=== PATIENT | female | born 1960 | race African-American/Black ===

== ENCOUNTER 2017-01-11 16:44 | Observation (INO) | payer OTHER ==
[~2017-01-11] VITALS: Ht 162.6 cm; Wt 120.3 kg
[~2017-01-11 16:44] MED LIST: CYCL5TAB PO; HYDR-2758 PO; LIRA0.6P SQ; METF-620 PO; METO50TA2 PO; OMEP40CA5 PO; PRAV40TA2 PO; TRAM50TA PO
[2017-01-11] MEDS ORDERED: IV NORMAL SALINE 1000ML BAG 1,000 ML IV SCH (17:25)
[2017-01-11] MEDS ORDERED: ONDANSETRON PF 4 MG/2 ML VIAL. IV ONE ×3 (17:30→21:00)
[2017-01-11 17:33] LABS: BASO # 0.1 x10^3/uL (0.0-0.2); BASO % 1 % (0-3); EOS % 0 % (0-3); HEMATOCRIT 41.2 % (36.0-47.0); HEMOGLOBIN 13.5 g/dL (12.0-15.5); LYMPH % 15 % (24-48); MEAN CORPUSCULAR HEMOGLOBIN 26 pg (25-35); MEAN CORPUSCULAR HGB CONC 33 g/dL (31-37); MEAN CORPUSCULAR VOLUME 80 fL (79-100); MONO % 2 % (0-9); NEUT % 82 % (31-73); PLATELET COUNT 314 x10^3/uL (140-400); RED BLOOD COUNT 5.15 x10^6/uL (3.50-5.40); WHITE BLOOD COUNT 6.5 x10^3/uL (4.0-11.0)
[2017-01-11] MEDS: fentaNYL PF VIAL 100 MCG/2 ML VIAL IV PRN ×3 (17:37→22:04)
[2017-01-11 17:45] LABS: CALCIUM 9.7 mg/dL (8.5-10.1); CREATININE 1.2 mg/dL (0.6-1.0); GFR 55.8; POTASSIUM 3.8 mmol/L (3.5-5.1)
[2017-01-11 17:51] LABS: TOTAL BILIRUBIN 0.4 mg/dL (0.2-1.0); TOTAL PROTEIN 8.6 g/dL (6.4-8.2)
[2017-01-11 18:10] LABS: ALBUMIN 4.1 g/dL (3.4-5.0); ALBUMIN/GLOBULIN RATIO 0.9 (1.0-1.7)
[2017-01-11] MEDS ORDERED: CONTRAST GIVEN MC PRN (18:15)
[2017-01-11] MEDS ORDERED: IOHEXOL 300 MG/ML 75 ML VIAL IV ONE (18:15)
--- NOTE | 2017-01-11 18:17 | ED.ADGEN ---
Past Medical History Past Medical History: Diabetes-Type II, GERD, Hypertension, VT Past Surgical History: Angioplasty, Hysterectomy, Other Additional Past Surgical Histo: knee surgery Alcohol Use: None Drug Use: None Adult General Chief Complaint Chief Complaint: ABDOMINAL PAIN HPI HPI Patient is a 56 year old woman, history of morbid obesity, type 2 diabetes mellitus, hypertension, CAD status post VT, who presents emergency Department with a complaint of several days of decreased appetite and abdominal pain, that has been growing progressively worse. Patient states that today she developed nausea and vomiting, with severe abdominal pain, located in her upper abdomen. She denies similar symptoms previously. States the pain does not radiate, states her last bowel movement was this morning and was normal, denies any diarrhea, states that she had food and fluid in her emesis. No blood. Patient has a history of a cholecystectomy, and hysterectomy, denies any other surgeries , states the pain is sharp and stabbing in nature, is constant. Denies any urinary complaints. Denies any travel, any fevers or chills, any chest pain or shortness breath, any similar symptoms previously. Patient is moaning on the bed during my examination. She states that she's been taking all medications as directed until today, where she is unable to take medications old a due to her pain and vomiting. She is complaining of nausea at this time, and 10 out of 10 pain. Review of Systems Review of Systems Constitutional: Denies fever or chills. [] Eyes: Denies change in visual acuity. [] HENT: Denies nasal congestion or sore throat. [] Respiratory: Denies cough or shortness of breath. [] Cardiovascular: Denies chest pain or edema. [] GI: Sharp and stabbing abdominal pain in the upper abdomen, associated with nausea, vomiting, no bloody stools or diarrhea.[] : Denies dysuria. [] Musculoskeletal: Denies back pain or joint pain. [] Integument: Denies rash. [] Neurologic: Denies headache, focal weakness or sensory changes. [] Endocrine: Denies polyuria or polydipsia. [] Lymphatic: Denies swollen glands. [] Psychiatric: Denies depression or anxiety. [] Current Medications Current Medications Current Medications Medications (Trade) Dose Ordered Sig/Sean Start Time Stop Time Status Last Admin Dose Admin Acetaminophen/ Hydrocodone Bitart (Lortab 5/325) 1 tab PRN Q4HRS PRN 01/11/17 21:00 01/11/17 22:56 1 TAB Dextrose (Dextrose 50%-Water Syringe) 12.5 gm PRN Q15MIN PRN 01/11/17 21:00 Famotidine (Pepcid) 20 mg QHS 01/11/17 21:00 Fentanyl Citrate (Fentanyl 2ml Vial) 50 mcg PRN Q2HR PRN 01/11/17 21:00 01/12/17 20:59 Info (Do NOT chart on this entry -- for MONITORING) 1 each PRN DAILY PRN 01/11/17 18:15 01/13/17 18:14 Iohexol (Omnipaque 300 Mg/ml) 60 ml 1X ONCE 01/11/17 18:15 01/11/17 18:16 DC 01/11/17 18:12 60 ML Labetalol HCl (Normodyne) 10 mg PRN Q2HR PRN 01/11/17 21:00 01/11/17 22:05 10 MG Metoprolol Tartrate (Lopressor) 50 mg BID 01/11/17 21:15 Ondansetron HCl (Zofran Odt) 4 mg PRN Q6HRS PRN 01/11/17 21:00 Ondansetron HCl (Zofran) 4 mg 1X ONCE 01/11/17 21:00 01/11/17 21:01 DC Sodium Chloride 1,000 ml @ 100 mls/hr Q10H 01/11/17 21:00 Tramadol HCl (Ultram) 50 mg PRN Q4HRS PRN 01/11/17 21:00 Allergies Allergies Allergies Coded Allergies Type Severity Reaction Last Updated Verified No Known Drug Allergies 10/06/13 No Physical Exam Physical Exam Constitutional: Well developed, well nourished, patient moaning, complaining of nausea, non-toxic appearance. [] HENT: Normocephalic, atraumatic, bilateral external ears normal, oropharynx moist, no oral exudates, nose normal. [] Eyes: PERRLA, EOMI, conjunctiva normal, no discharge. [] Neck: Normal range of motion, no tenderness, supple, no stridor. [] Cardiovascular:Heart rate regular rhythm, no murmur , S1, S2, rubs or gallops.[] Lungs & Thorax: Bilateral breath sounds clear to auscultation, no wheezing, rhonchi, rales. No chest or crepitus or tenderness. [] Abdomen: Bowel sounds present, patient obese, soft, tenderness to palpation in the upper and periumbilical region of the abdomen, patient with well-healed surgical incision across the right upper abdomen, right lower quadrant, and vertical incision in the suprapubic region, all are well healed, no rebound or rigidity, no masses, no pulsatile masses. [] Skin: Warm, dry, no erythema, no rash. [] Back: No tenderness, no CVA tenderness. [] Extremities: No tenderness, no cyanosis, no clubbing, ROM intact, no edema. [] Neurologic: Alert and oriented X 3, normal motor function, normal sensory function, no focal deficits noted. [] Psychologic: Affect normal, judgement normal, mood normal. [] Current Patient Data Vital Signs Vital Signs Date Time Temp Pulse Resp B/P (MAP) Pulse Ox O2 Delivery O2 Flow Rate FiO2 01/11/17 21:11 98 20 197/74 (115) 98 Room Air 01/11/17 16:55 98.2 98.2 Lab Values Laboratory Tests Test 01/11/17 17:02 01/11/17 18:52 White Blood Count 6.5 x10^3/uL (4.0-11.0) Red Blood Count 5.15 x10^6/uL (3.50-5.40) Hemoglobin 13.5 g/dL (12.0-15.5) Hematocrit 41.2 % (36.0-47.0) Mean Corpuscular Volume 80 fL (79-100) Mean Corpuscular Hemoglobin 26 pg (25-35) Mean Corpuscular Hemoglobin Concent 33 g/dL (31-37) Red Cell Distribution Width 14.0 % (11.5-14.5) Platelet Count 314 x10^3/uL (140-400) Neutrophils (%) (Auto) 82 % (31-73) H Lymphocytes (%) (Auto) 15 % (24-48) L Monocytes (%) (Auto) 2 % (0-9) Eosinophils (%) (Auto) 0 % (0-3) Basophils (%) (Auto) 1 % (0-3) Neutrophils # (Auto) 5.3 x10^3uL (1.8-7.7) Lymphocytes # (Auto) 1.0 x10^3/uL (1.0-4.8) Monocytes # (Auto) 0.1 x10^3/uL (0.0-1.1) Eosinophils # (Auto) 0.0 x10^3/uL (0.0-0.7) Basophils # (Auto) 0.1 x10^3/uL (0.0-0.2) Sodium Level 141 mmol/L (136-145) Potassium Level 3.8 mmol/L (3.5-5.1) Chloride Level 101 mmol/L (98-107) Carbon Dioxide Level 26 mmol/L (21-32) Anion Gap 14 (6-14) Blood Urea Nitrogen 22 mg/dL (7-20) H Creatinine 1.2 mg/dL (0.6-1.0) H Estimated GFR (Cockcroft-Gault) 55.8 BUN/Creatinine Ratio 18 (6-20) Glucose Level 186 mg/dL (70-99) H Lactic Acid Level 3.0 mmol/L (0.4-2.0) H Calcium Level 9.7 mg/dL (8.5-10.1) Total Bilirubin 0.4 mg/dL (0.2-1.0) Aspartate Amino Transferase (AST) 21 U/L (15-37) Alanine Aminotransferase (ALT) 26 U/L (14-59) Alkaline Phosphatase 104 U/L (46-116) Troponin I Quantitative < 0.017 ng/mL (0.000-0.055) Total Protein 8.6 g/dL (6.4-8.2) H Albumin 4.1 g/dL (3.4-5.0) Albumin/Globulin Ratio 0.9 (1.0-1.7) L Lipase 116 U/L (73-393) Urine Collection Type Unknown Urine Color Yellow Urine Clarity Clear Urine pH 7.0 Urine Specific [place] >=1.030 Urine Protein Negative mg/dL (NEG-TRACE) Urine Glucose (UA) 100 mg/dL (NEG) Urine Ketones (Stick) 40 mg/dL (NEG) Urine Blood Negative (NEG) Urine Nitrite Negative (NEG) Urine Bilirubin Negative (NEG) Urine Urobilinogen Dipstick 0.2 mg/dL (0.2 mg/dL) Urine Leukocyte Esterase Negative (NEG) Urine RBC 0 /HPF (0-2) Urine WBC 0 /HPF (0-4) Urine Squamous Epithelial Cells Mod /LPF Urine Bacteria 0 /HPF (0-FEW) Urine Hyaline Casts Occasional /HPF Urine Opiates Screen Pos (NEG) Urine Methadone Screen Neg (NEG) Urine Barbiturates Neg (NEG) Urine Phencyclidine Screen Neg (NEG) Urine Amphetamine/Methamphetamine Neg (NEG) Urine Benzodiazepines Screen Neg (NEG) Urine Cocaine Screen Neg (NEG) Urine Cannabinoids Screen Pos (NEG) Urine Ethyl Alcohol Neg (NEG) Laboratory Tests 01/11/17 17:02 Laboratory Tests 01/11/17 17:02 EKG EKG EC: Sinus rhythm, heart rate 94 beats/minute, QTC of 445, NM 158, QRS of 84, patient with mild baseline artifact noted, escape complexes noted, abnormal ECG, does not meet STEMI criteria. As interpreted by me. Radiology/Procedures Radiology/Procedures [][facility] [address] [place] [address] IMAGING REPORT Signed PATIENT: RAKESH ZIMMERMAN ACCOUNT: [id number] : 1960 LOCATION: ER AGE: 56 SEX: F EXAM STATUS: REG ER ORD. PHYSICIAN: DE HOOD DO REASON: abd pain/n/v PROCEDURE: CT ABD PELV W/ IV CONTRST ONLY Indication: Abdominal pain, nausea and vomiting Technique: Axial images and coronal and sagittal reformatted images are provided. 75 mL of intravenous Omnipaque 300 was administered without complication. Comparison is from February 04, 2006. One or more of the following individualized dose reduction techniques were utilized for this examination: 1. Automated exposure control 2. Adjustment of the mA and/or kV according to patient size 3. Use of iterative reconstruction technique Findings: There is minimal atelectasis in the lung bases. There is no pleural effusion. The heart is not enlarged. There is mild fatty infiltration of the liver. Gallbladder is absent. Spleen is not enlarged. Pancreas and adrenals are unremarkable. Kidneys are symmetrically perfused. Aorta is normal caliber. There may be a small hiatal hernia. Lack of oral contrast limits evaluation of bowel. There is no small bowel obstruction or mural thickening. There are a few diverticula in the colon. There is no definite adjacent inflammatory stranding or mural thickening to suggest a diverticulitis. There is no evidence of an acute appendicitis, appendix not definitely visualized. There is a fat-containing periumbilical hernia on the left without incarceration, measures 5 x 2 cm. There is a second hernia from the lower abdomen, defect in the midline with hernia sac to the left of midline containing small bowel loops without evidence of obstruction or incarceration. This hernia sac measures 12 x 5 cm with defect in the abdominal wall 7 cm. Bladder is unremarkable. Uterus is presumed surgically absent. There is no adnexal mass. There are clips in the pelvis. There are degenerative changes in the spine. Portions of this patient's subcutaneous tissues cannot be included in the [id number], the left flank in particular is not well evaluated. This results in streak artifact limiting evaluation of the descending colon, especially in terms of adjacent inflammatory change. IMPRESSION: 1. Diverticulosis without findings of diverticulitis. 2. 2 abdominal hernias, one contains small bowel but is without evidence of obstruction or incarceration. 3. Suspected small hiatal hernia. Electronically signed by: Derrick Hammond MD (01/11/2017 6:49 PM) [facility] DICTATED and SIGNED BY: DERRICK AHMMOND MD DATE: 01/11/171841 CC: DE HOOD DO; DIAZ GRIGSBY Jr, MD ~ Course & Med Decision Making Course & Med Decision Making Pertinent Labs and Imaging studies reviewed. (See chart for details) Patient with persistent pain and nausea with vomiting despite interventions in the ED, including multiple doses of analgesia and antiemetics. CT does not reveal any evidence of acutely concerning findings, however based on patient's persistent symptoms, with an elevated lactic at 3.0, will admit for hydration, symptom management, additional evaluation. Did discuss with patient that his symptoms are likely consistent with a gastroenteritis, patient is agreeable for admission to the hospital. Findings as above discussed with Dr. Peralta of internal medicine, patient evaluated in the ED, accepted to her service as an observation admission, with consultation for GI placed, bridge orders per discussion. Dragon Disclaimer Dragon Disclaimer This electronic medical record was generated, in whole or in part, using a voice recognition dictation system. Departure Impression: Primary Impression: Abdominal pain Disposition: ADMITTED INPATIENT Admitting Physician: Jahaira Peralta Condition: STABLE DE HOOD DO Jan 11, 2017 18:17
--- NOTE | 2017-01-11 18:53 | RAD ---
Indication: Abdominal pain, nausea and vomiting Technique: Axial images and coronal and sagittal reformatted images are provided. 75 mL of intravenous Omnipaque 300 was administered without complication. Comparison is from February 04, 2006. One or more of the following individualized dose reduction techniques were utilized for this examination: 1. Automated exposure control 2. Adjustment of the mA and/or kV according to patient size 3. Use of iterative reconstruction technique Findings: There is minimal atelectasis in the lung bases. There is no pleural effusion. The heart is not enlarged. There is mild fatty infiltration of the liver. Gallbladder is absent. Spleen is not enlarged. Pancreas and adrenals are unremarkable. Kidneys are symmetrically perfused. Aorta is normal caliber. There may be a small hiatal hernia. Lack of oral contrast limits evaluation of bowel. There is no small bowel obstruction or mural thickening. There are a few diverticula in the colon. There is no definite adjacent inflammatory stranding or mural thickening to suggest a diverticulitis. There is no evidence of an acute appendicitis, appendix not definitely visualized. There is a fat-containing periumbilical hernia on the left without incarceration, measures 5 x 2 cm. There is a second hernia from the lower abdomen, defect in the midline with hernia sac to the left of midline containing small bowel loops without evidence of obstruction or incarceration. This hernia sac measures 12 x 5 cm with defect in the abdominal wall 7 cm. Bladder is unremarkable. Uterus is presumed surgically absent. There is no adnexal mass. There are clips in the pelvis. There are degenerative changes in the spine. Portions of this patient's subcutaneous tissues cannot be included in the [id number], the left flank in particular is not well evaluated. This results in streak artifact limiting evaluation of the descending colon, especially in terms of adjacent inflammatory change. IMPRESSION: 1. Diverticulosis without findings of diverticulitis. 2. 2 abdominal hernias, one contains small bowel but is without evidence of obstruction or incarceration. 3. Suspected small hiatal hernia. Electronically signed by: Derrick Hammond MD (01/11/2017 6:49 PM) [facility]
[2017-01-11 19:01] LABS: BILIRUBIN,URINE NEGATIVE (NEG); GLUCOSE,URINE 100 mg/dL (NEG); NITRITE,URINE NEGATIVE (NEG); PROTEIN,URINE NEGATIVE (NEG-TRACE); UROBILINOGEN,URINE 0.2 mg/dL (0.2 mg/dL)
[2017-01-11 19:07] LABS: BARBITURATES NEG (NEG); BENZODIAZEPINES NEG (NEG); CANNABINOIDS POS (NEG); COCAINE NEG (NEG); METHADONE NEG (NEG); OPIATES POS (NEG); PHENCYCLIDINE NEG (NEG)
[2017-01-11 19:09] LABS: BACTERIA,URINE 0 /HPF (0-FEW); RBC,URINE 0 /HPF (0-2); SQUAMOUS EPITHELIAL CELL,UR MOD /LPF; WBC,URINE 0 /HPF (0-4)
[2017-01-11] MEDS ORDERED: IV NORMAL SALINE 1000ML BAG 1,000 ML IV ONE (20:15)
[2017-01-11] MEDS ORDERED: ONDANSETRON ODT 4 MG TAB.RAPDIS. PO PRN (21:00)
[2017-01-11] MEDS ORDERED: LABETALOL 20 MG/4 ML DISP.SYRIN. IVP PRN (21:00)
[2017-01-11] MEDS ORDERED: HYDROcodone/APAP 5/325MG 1 TAB TABLET PO PRN (21:00)
[2017-01-11] MEDS ORDERED: DEXTROSE 50% 25 GM / 50ML DISP.SYRIN. IV PRN (21:00)
[2017-01-11] MEDS ORDERED: traMADol 50 MG TABLET PO PRN (21:00)
[2017-01-11] MEDS: IV NORMAL SALINE 1000ML BAG 1,000 ML IV SCH ×2 (21:00→22:00)
[2017-01-11] MEDS ORDERED: FAMOTIDINE 20 MG/2 ML VIAL IVP SCH (21:00)
[2017-01-11] MEDS ORDERED: fentaNYL PF VIAL 100 MCG/2 ML VIAL IV PRN (21:00)
--- NOTE | 2017-01-11 21:00 | PDOC1 ---
History and Physical Date of Admission Date of Admission DATE: 01/11/17 TIME: 20:53 Identification/Chief Complaint Chief Complaint abd pain Problems: Source Source: Caregiver, Chart review, Patient History of Present Illness History of Present Illness Pleasant 56 y.o AA female 1 week onset intermittent abd pain, most tender on Right side, mid to upper areas. CT abd fails to show any acute pathology, all incidentals only i,e ventral hernia none obstructing, diverticulosis, NO fevers , no diarrhea but did have 100 cc greenish emesis at ER during my visit, Better with IV fentanyl got 2 doses and is slightly sleepy, at bedside denies recent sick contacts or travels or any suspicious foods. Labs unimpressive. Admit as pain persist and to have GS see her,. HAs had prior cholecystectomy, APpendix still intact and lacks inflammatory findings Past Medical History Cardiovascular: HTN Endocrine: Diabetes Past Surgical History Past Surgical History: Cholecystectomy, No pertinent history Family History Family History: High Cholestrol, Hypertension Social History Smoke: No ALCOHOL: none Drugs: None Current Medications Current Medications Current Medications Fentanyl Citrate (Fentanyl 2ml Vial) 50 mcg PRN Q15MIN PRN IV PAIN GREATER THAN 3/10 Last administered on 01/11/17 19:19; Start 01/11/17 at 17:30; Stop at 17:29 Sodium Chloride 1,000 ml @ 1,000 mls/hr Q1H IV Last administered on 01/11/17 17:36; Start 01/11/17 at 17:25; Stop 01/11/17 at 18:24; Status DC Ondansetron HCl (Zofran) 4 mg 1X ONCE IV Last administered on 01/11/17 17:36 ; Start 01/11/17 at 17:30; Stop 01/11/17 at 17:31; Status DC Iohexol (Omnipaque 300 Mg/ml) 60 ml 1X ONCE IV Last administered on 01/11/17 18:12; Start 01/11/17 at 18:15; Stop 01/11/17 at 18:16; Status DC Info (Do NOT chart on this entry -- for MONITORING) 1 each PRN DAILY PRN MC SEE COMMENTS; Start 01/11/17 at 18:15; Stop 01/13/17 at 18:14 Ondansetron HCl (Zofran) 4 mg 1X ONCE IV Last administered on 01/11/17 20:20 ; Start 01/11/17 at 20:15; Stop 01/11/17 at 20:19; Status DC Sodium Chloride 1,000 ml @ 125 mls/hr 1X ONCE IV Last administered on 20:22; Start 01/11/17 at 20:15; Stop 01/12/17 at 04:14 Active Scripts Active Reported Victoza 2-Jewel (Liraglutide) 0.6 Mg/0.1 Ml Pen.injctr 0.6 Mg SQ DAILY Omeprazole 40 Mg Capsule.dr 40 Mg PO DAILY Cyclobenzaprine Hcl 5 Mg Tablet 5 Mg PO BID Metoprolol Tartrate 50 Mg Tablet 50 Mg PO BID Tramadol Hcl 50 Mg Tablet 50 Mg PO Q4H PRN Hydrocodone-Apap 5-325 (Hydrocodone Bit/Acetaminophen) 1 Each Tablet 1 Tab PO PRN Q4HRS PRN Pravastatin Sodium 40 Mg Tablet 40 Mg PO DAILY Metformin Hcl 1,000 Mg Tablet 1,000 Mg PO BID Allergies Allergies: Coded Allergies: No Known Drug Allergies (Unverified , 10/06/13) ROS Review of System limited sleepy, but is body rolling machine tender on palpation Physical Exam General: Oriented X3, Cooperative, No acute distress HEENT: PERRLA Lungs: Clear to auscultation, Normal air movement Cardiovascular: S1 Breasts: Normal, Rt breast nml w/o mass, Lt breast nml w/o mass, Nipples normal Abdomen: Soft, Other (tender on Rt side, on mild palpation, but no guarding) Rectal Exam: not examined Extremities: No clubbing, No cyanosis, No edema, Normal pulses, No tenderness/ swelling Skin: No rashes, No breakdown, No significant lesion Neuro: Normal gait, Normal speech, Strength at 5/5 X4 ext, Normal tone, Sensation intact, Cranial nerves 3-12 NL, Reflexes 2+ Psych/Mental Status: Mental status NL, Mood NL Vitals Vitals Vital Signs Date Time Temp Pulse Resp B/P (MAP) Pulse Ox O2 Delivery O2 Flow Rate FiO2 01/11/17 19:19 24 98 Room Air 01/11/17 16:55 98.2 112 190/100 (130) 98.2 Labs Labs Laboratory Tests Test 01/11/17 17:02 01/11/17 18:52 White Blood Count 6.5 x10^3/uL (4.0-11.0) Red Blood Count 5.15 x10^6/uL (3.50-5.40) Hemoglobin 13.5 g/dL (12.0-15.5) Hematocrit 41.2 % (36.0-47.0) Mean Corpuscular Volume 80 fL (79-100) Mean Corpuscular Hemoglobin 26 pg (25-35) Mean Corpuscular Hemoglobin Concent 33 g/dL (31-37) Red Cell Distribution Width 14.0 % (11.5-14.5) Platelet Count 314 x10^3/uL (140-400) Neutrophils (%) (Auto) 82 % (31-73) Lymphocytes (%) (Auto) 15 % (24-48) Monocytes (%) (Auto) 2 % (0-9) Eosinophils (%) (Auto) 0 % (0-3) Basophils (%) (Auto) 1 % (0-3) Neutrophils # (Auto) 5.3 x10^3uL (1.8-7.7) Lymphocytes # (Auto) 1.0 x10^3/uL (1.0-4.8) Monocytes # (Auto) 0.1 x10^3/uL (0.0-1.1) Eosinophils # (Auto) 0.0 x10^3/uL (0.0-0.7) Basophils # (Auto) 0.1 x10^3/uL (0.0-0.2) Sodium Level 141 mmol/L (136-145) Potassium Level 3.8 mmol/L (3.5-5.1) Chloride Level 101 mmol/L (98-107) Carbon Dioxide Level 26 mmol/L (21-32) Anion Gap 14 (6-14) Blood Urea Nitrogen 22 mg/dL (7-20) Creatinine 1.2 mg/dL (0.6-1.0) Estimated GFR (Cockcroft-Gault) 55.8 BUN/Creatinine Ratio 18 (6-20) Glucose Level 186 mg/dL (70-99) Lactic Acid Level 3.0 mmol/L (0.4-2.0) Calcium Level 9.7 mg/dL (8.5-10.1) Total Bilirubin 0.4 mg/dL (0.2-1.0) Aspartate Amino Transf (AST/SGOT) 21 U/L (15-37) Alanine Aminotransferase (ALT/SGPT) 26 U/L (14-59) Alkaline Phosphatase 104 U/L (46-116) Troponin I Quantitative < 0.017 ng/mL (0.000-0.055) Total Protein 8.6 g/dL (6.4-8.2) Albumin 4.1 g/dL (3.4-5.0) Albumin/Globulin Ratio 0.9 (1.0-1.7) Lipase 116 U/L (73-393) Urine Collection Type Unknown Urine Color Yellow Urine Clarity Clear Urine pH 7.0 Urine Specific [place] >=1.030 Urine Protein Negative mg/dL (NEG-TRACE) Urine Glucose (UA) 100 mg/dL (NEG) Urine Ketones (Stick) 40 mg/dL (NEG) Urine Blood Negative (NEG) Urine Nitrite Negative (NEG) Urine Bilirubin Negative (NEG) Urine Urobilinogen Dipstick 0.2 mg/dL (0.2 mg/dL) Urine Leukocyte Esterase Negative (NEG) Urine RBC 0 /HPF (0-2) Urine WBC 0 /HPF (0-4) Urine Squamous Epithelial Cells Mod /LPF Urine Bacteria 0 /HPF (0-FEW) Urine Hyaline Casts Occasional /HPF Urine Opiates Screen Pos (NEG) Urine Methadone Screen Neg (NEG) Urine Barbiturates Neg (NEG) Urine Phencyclidine Screen Neg (NEG) Urine Amphetamine/Methamphetamine Neg (NEG) Urine Benzodiazepines Screen Neg (NEG) Urine Cocaine Screen Neg (NEG) Urine Cannabinoids Screen Pos (NEG) Urine Ethyl Alcohol Neg (NEG) Laboratory Tests Test 01/11/17 17:02 01/11/17 18:52 White Blood Count 6.5 x10^3/uL (4.0-11.0) Red Blood Count 5.15 x10^6/uL (3.50-5.40) Hemoglobin 13.5 g/dL (12.0-15.5) Hematocrit 41.2 % (36.0-47.0) Mean Corpuscular Volume 80 fL (79-100) Mean Corpuscular Hemoglobin 26 pg (25-35) Mean Corpuscular Hemoglobin Concent 33 g/dL (31-37) Red Cell Distribution Width 14.0 % (11.5-14.5) Platelet Count 314 x10^3/uL (140-400) Neutrophils (%) (Auto) 82 % (31-73) Lymphocytes (%) (Auto) 15 % (24-48) Monocytes (%) (Auto) 2 % (0-9) Eosinophils (%) (Auto) 0 % (0-3) Basophils (%) (Auto) 1 % (0-3) Neutrophils # (Auto) 5.3 x10^3uL (1.8-7.7) Lymphocytes # (Auto) 1.0 x10^3/uL (1.0-4.8) Monocytes # (Auto) 0.1 x10^3/uL (0.0-1.1) Eosinophils # (Auto) 0.0 x10^3/uL (0.0-0.7) Basophils # (Auto) 0.1 x10^3/uL (0.0-0.2) Sodium Level 141 mmol/L (136-145) Potassium Level 3.8 mmol/L (3.5-5.1) Chloride Level 101 mmol/L (98-107) Carbon Dioxide Level 26 mmol/L (21-32) Anion Gap 14 (6-14) Blood Urea Nitrogen 22 mg/dL (7-20) Creatinine 1.2 mg/dL (0.6-1.0) Estimated GFR (Cockcroft-Gault) 55.8 BUN/Creatinine Ratio 18 (6-20) Glucose Level 186 mg/dL (70-99) Lactic Acid Level 3.0 mmol/L (0.4-2.0) Calcium Level 9.7 mg/dL (8.5-10.1) Total Bilirubin 0.4 mg/dL (0.2-1.0) Aspartate Amino Transf (AST/SGOT) 21 U/L (15-37) Alanine Aminotransferase (ALT/SGPT) 26 U/L (14-59) Alkaline Phosphatase 104 U/L (46-116) Troponin I Quantitative < 0.017 ng/mL (0.000-0.055) Total Protein 8.6 g/dL (6.4-8.2) Albumin 4.1 g/dL (3.4-5.0) Albumin/Globulin Ratio 0.9 (1.0-1.7) Lipase 116 U/L (73-393) Urine Collection Type Unknown Urine Color Yellow Urine Clarity Clear Urine pH 7.0 Urine Specific [place] >=1.030 Urine Protein Negative mg/dL (NEG-TRACE) Urine Glucose (UA) 100 mg/dL (NEG) Urine Ketones (Stick) 40 mg/dL (NEG) Urine Blood Negative (NEG) Urine Nitrite Negative (NEG) Urine Bilirubin Negative (NEG) Urine Urobilinogen Dipstick 0.2 mg/dL (0.2 mg/dL) Urine Leukocyte Esterase Negative (NEG) Urine RBC 0 /HPF (0-2) Urine WBC 0 /HPF (0-4) Urine Squamous Epithelial Cells Mod /LPF Urine Bacteria 0 /HPF (0-FEW) Urine Hyaline Casts Occasional /HPF Urine Opiates Screen Pos (NEG) Urine Methadone Screen Neg (NEG) Urine Barbiturates Neg (NEG) Urine Phencyclidine Screen Neg (NEG) Urine Amphetamine/Methamphetamine Neg (NEG) Urine Benzodiazepines Screen Neg (NEG) Urine Cocaine Screen Neg (NEG) Urine Cannabinoids Screen Pos (NEG) Urine Ethyl Alcohol Neg (NEG) VTE Prophylaxis Ordered VTE Prophylaxis Devices: Yes VTE Pharmacological Prophylaxi: Yes Assessment/Plan Assessment/Plan 1. Right sided abd pain, acute to subacute onset - normal appendix, absent GB - could be AGE 2. Incidental small hiatal hernia with absence of obstruction, diverticulosis no "itis" 3. DM 2 on OHA and victoza 4. HTN, accelerated on POA PLAn: Liquid diet Admit 2 MN IVF while minimal PO ADAT when less pain and no emesis PPI GS consult Await home meds SSI moderate dose only since minimal PO Supprtive meds Prn IV pushes for high BP COuld be gastroenteritis causing her sxs Seen at [facility]GH[facility] AUGUSTIN MD Jan 11, 2017 21:00
[2017-01-11] MEDS: METOPROLOL TART IMMED RELEASE 50 MG TABLET. PO SCH (21:15)
[2017-01-11] MEDS: CYCLOBENZAPRINE 10 MG TABLET. PO SCH (21:30)
[2017-01-11] MEDS ORDERED: ACETAMINOPHEN 325 MG TABLET. PO PRN (21:45)
[2017-01-11] MEDS ORDERED: ONDANSETRON PF 4 MG/2 ML VIAL. IV PRN (21:45)
[2017-01-11 22:56] VITALS: BP 173/80
[2017-01-12] MEDS: fentaNYL PF VIAL 100 MCG/2 ML VIAL IV PRN (02:50)
[2017-01-12 02:51] VITALS: BP 198/82
[2017-01-12] MEDS: IV NORMAL SALINE 1000ML BAG 1,000 ML IV SCH ×2 (06:00→07:00)
--- NOTE | 2017-01-12 06:30 | EKG ---
[facility] [address] [place] [address] Test Date: 2017-01-11 Test Time: 19:16:31 Pat Name: RAKESH ZIMMERMAN Department: Room: Gender: F Drilling Field Operator: : 1960 Requested By: DE HOOD Order Number: [id number] Reading MD: Measurements Intervals [place] Rate: 94 P: 39 AR: 158 QRS: 28 QRSD: 84 T: 28 QT: 356 QTc: 445 Interpretive Statements SINUS RHYTHM ATRIAL ESCAPE COMPLEX(ES) NON SPECIFIC ST DEPRESSION RI6.01 Unconfirmed report No previous ECG available for comparison
[2017-01-12 07:00] VITALS: BP 134/59
[2017-01-12] MEDS ORDERED: PANTOPRAZOLE 40 MG TABLET.DR. PO SCH (07:30)
[2017-01-12] MEDS ORDERED: INSULIN ASPART 300 UNITS/3 ML INSULN.PEN SQ SCH (08:00)
[2017-01-12 08:38] LABS: BASO % 1 % (0-3); EOS % 0 % (0-3); HEMATOCRIT 36.7 % (36.0-47.0); HEMOGLOBIN 11.9 g/dL (12.0-15.5); LYMPH # 1.3 x10^3/uL (1.0-4.8); LYMPH % 16 % (24-48); MEAN CORPUSCULAR HEMOGLOBIN 26 pg (25-35); MEAN CORPUSCULAR HGB CONC 33 g/dL (31-37); MEAN CORPUSCULAR VOLUME 79 fL (79-100); MONO % 8 % (0-9); NEUT % 76 % (31-73); PLATELET COUNT 258 x10^3/uL (140-400); RED BLOOD COUNT 4.64 x10^6/uL (3.50-5.40); RED CELL DISTRIBUTION WIDTH 13.9 % (11.5-14.5); WHITE BLOOD COUNT 8.4 x10^3/uL (4.0-11.0)
[2017-01-12 08:54] LABS: CALCIUM 8.5 mg/dL (8.5-10.1); GFR 68.9; POTASSIUM 3.1 mmol/L (3.5-5.1)
[2017-01-12] MEDS ORDERED: NON FORMULARY ITEM (Liraglutide (Victoza 2-Pak) 0.6 MG) SQ SCH (09:00)
[2017-01-12] MEDS ORDERED: ATORVASTATIN CALCIUM 10 MG TABLET. PO SCH (09:00)
[2017-01-12] MEDS: CYCLOBENZAPRINE 10 MG TABLET. PO SCH (09:48)
[2017-01-12] MEDS: METOPROLOL TART IMMED RELEASE 50 MG TABLET. PO SCH (09:48)
[2017-01-12] MEDS ORDERED: ONDA4TAB10 SL (10:46)
--- NOTE | 2017-01-12 10:48 | PDOC3 ---
Discharge Summary Visit Information Date of Admission: Jan 11, 2017 Date of Discharge: Jan 12, 2017 Admitting Diagnosis Comment: AGE, viral; Final Diagnosis Problems Medical Problems: (1) Abdominal pain Status: Acute Brief Hospital Course Allergies Allergies Coded Allergies Type Severity Reaction Last Updated Verified No Known Drug Allergies 10/06/13 No Vital Signs Vital Signs Date Time Temp Pulse Resp B/P (MAP) Pulse Ox O2 Delivery O2 Flow Rate FiO2 01/12/17 09:48 97 134/59 01/12/17 08:00 Room Air 01/12/17 07:09 100 01/12/17 07:00 97.6 19 97.6 Lab Results Laboratory Tests Test 01/11/17 17:02 01/11/17 18:52 01/12/17 07:37 01/12/17 08:20 White Blood Count 6.5 x10^3/uL (4.0-11.0) 8.4 x10^3/uL (4.0-11.0) Red Blood Count 5.15 x10^6/uL (3.50-5.40) 4.64 x10^6/uL (3.50-5.40) Hemoglobin 13.5 g/dL (12.0-15.5) 11.9 g/dL (12.0-15.5) Hematocrit 41.2 % (36.0-47.0) 36.7 % (36.0-47.0) Mean Corpuscular Volume 80 fL (79-100) 79 fL (79-100) Mean Corpuscular Hemoglobin 26 pg (25-35) 26 pg (25-35) Mean Corpuscular Hemoglobin Concent 33 g/dL (31-37) 33 g/dL (31-37) Red Cell Distribution Width 14.0 % (11.5-14.5) 13.9 % (11.5-14.5) Platelet Count 314 x10^3/uL (140-400) 258 x10^3/uL (140-400) Neutrophils (%) (Auto) 82 % (31-73) 76 % (31-73) Lymphocytes (%) (Auto) 15 % (24-48) 16 % (24-48) Monocytes (%) (Auto) 2 % (0-9) 8 % (0-9) Eosinophils (%) (Auto) 0 % (0-3) 0 % (0-3) Basophils (%) (Auto) 1 % (0-3) 1 % (0-3) Neutrophils # (Auto) 5.3 x10^3uL (1.8-7.7) 6.4 x10^3uL (1.8-7.7) Lymphocytes # (Auto) 1.0 x10^3/uL (1.0-4.8) 1.3 x10^3/uL (1.0-4.8) Monocytes # (Auto) 0.1 x10^3/uL (0.0-1.1) 0.7 x10^3/uL (0.0-1.1) Eosinophils # (Auto) 0.0 x10^3/uL (0.0-0.7) 0.0 x10^3/uL (0.0-0.7) Basophils # (Auto) 0.1 x10^3/uL (0.0-0.2) 0.0 x10^3/uL (0.0-0.2) Sodium Level 141 mmol/L (136-145) 139 mmol/L (136-145) Potassium Level 3.8 mmol/L (3.5-5.1) 3.1 mmol/L (3.5-5.1) Chloride Level 101 mmol/L (98-107) 103 mmol/L (98-107) Carbon Dioxide Level 26 mmol/L (21-32) 24 mmol/L (21-32) Anion Gap 14 (6-14) 12 (6-14) Blood Urea Nitrogen 22 mg/dL (7-20) 16 mg/dL (7-20) Creatinine 1.2 mg/dL (0.6-1.0) 1.0 mg/dL (0.6-1.0) Estimated GFR (Cockcroft-Gault) 55.8 68.9 BUN/Creatinine Ratio 18 (6-20) Glucose Level 186 mg/dL (70-99) 162 mg/dL (70-99) Lactic Acid Level 3.0 mmol/L (0.4-2.0) Calcium Level 9.7 mg/dL (8.5-10.1) 8.5 mg/dL (8.5-10.1) Total Bilirubin 0.4 mg/dL (0.2-1.0) Aspartate Amino Transf (AST/SGOT) 21 U/L (15-37) Alanine Aminotransferase (ALT/SGPT) 26 U/L (14-59) Alkaline Phosphatase 104 U/L (46-116) Troponin I Quantitative < 0.017 ng/mL (0.000-0.055) Total Protein 8.6 g/dL (6.4-8.2) Albumin 4.1 g/dL (3.4-5.0) Albumin/Globulin Ratio 0.9 (1.0-1.7) Lipase 116 U/L (73-393) Urine Collection Type Unknown Urine Color Yellow Urine Clarity Clear Urine pH 7.0 Urine Specific Jones >=1.030 Urine Protein Negative mg/dL (NEG-TRACE) Urine Glucose (UA) 100 mg/dL (NEG) Urine Ketones (Stick) 40 mg/dL (NEG) Urine Blood Negative (NEG) Urine Nitrite Negative (NEG) Urine Bilirubin Negative (NEG) Urine Urobilinogen Dipstick 0.2 mg/dL (0.2 mg/dL) Urine Leukocyte Esterase Negative (NEG) Urine RBC 0 /HPF (0-2) Urine WBC 0 /HPF (0-4) Urine Squamous Epithelial Cells Mod /LPF Urine Bacteria 0 /HPF (0-FEW) Urine Hyaline Casts Occasional /HPF Urine Opiates Screen Pos (NEG) Urine Methadone Screen Neg (NEG) Urine Barbiturates Neg (NEG) Urine Phencyclidine Screen Neg (NEG) Urine Amphetamine/Methamphetamine Neg (NEG) Urine Benzodiazepines Screen Neg (NEG) Urine Cocaine Screen Neg (NEG) Urine Cannabinoids Screen Pos (NEG) Urine Ethyl Alcohol Neg (NEG) Glucose (Fingerstick) 159 mg/dL (70-99) Laboratory Tests Test 01/11/17 17:02 01/11/17 18:52 01/12/17 07:37 01/12/17 08:20 White Blood Count 6.5 x10^3/uL (4.0-11.0) 8.4 x10^3/uL (4.0-11.0) Red Blood Count 5.15 x10^6/uL (3.50-5.40) 4.64 x10^6/uL (3.50-5.40) Hemoglobin 13.5 g/dL (12.0-15.5) 11.9 g/dL (12.0-15.5) Hematocrit 41.2 % (36.0-47.0) 36.7 % (36.0-47.0) Mean Corpuscular Volume 80 fL (79-100) 79 fL (79-100) Mean Corpuscular Hemoglobin 26 pg (25-35) 26 pg (25-35) Mean Corpuscular Hemoglobin Concent 33 g/dL (31-37) 33 g/dL (31-37) Red Cell Distribution Width 14.0 % (11.5-14.5) 13.9 % (11.5-14.5) Platelet Count 314 x10^3/uL (140-400) 258 x10^3/uL (140-400) Neutrophils (%) (Auto) 82 % (31-73) 76 % (31-73) Lymphocytes (%) (Auto) 15 % (24-48) 16 % (24-48) Monocytes (%) (Auto) 2 % (0-9) 8 % (0-9) Eosinophils (%) (Auto) 0 % (0-3) 0 % (0-3) Basophils (%) (Auto) 1 % (0-3) 1 % (0-3) Neutrophils # (Auto) 5.3 x10^3uL (1.8-7.7) 6.4 x10^3uL (1.8-7.7) Lymphocytes # (Auto) 1.0 x10^3/uL (1.0-4.8) 1.3 x10^3/uL (1.0-4.8) Monocytes # (Auto) 0.1 x10^3/uL (0.0-1.1) 0.7 x10^3/uL (0.0-1.1) Eosinophils # (Auto) 0.0 x10^3/uL (0.0-0.7) 0.0 x10^3/uL (0.0-0.7) Basophils # (Auto) 0.1 x10^3/uL (0.0-0.2) 0.0 x10^3/uL (0.0-0.2) Sodium Level 141 mmol/L (136-145) 139 mmol/L (136-145) Potassium Level 3.8 mmol/L (3.5-5.1) 3.1 mmol/L (3.5-5.1) Chloride Level 101 mmol/L (98-107) 103 mmol/L (98-107) Carbon Dioxide Level 26 mmol/L (21-32) 24 mmol/L (21-32) Anion Gap 14 (6-14) 12 (6-14) Blood Urea Nitrogen 22 mg/dL (7-20) 16 mg/dL (7-20) Creatinine 1.2 mg/dL (0.6-1.0) 1.0 mg/dL (0.6-1.0) Estimated GFR (Cockcroft-Gault) 55.8 68.9 BUN/Creatinine Ratio 18 (6-20) Glucose Level 186 mg/dL (70-99) 162 mg/dL (70-99) Lactic Acid Level 3.0 mmol/L (0.4-2.0) Calcium Level 9.7 mg/dL (8.5-10.1) 8.5 mg/dL (8.5-10.1) Total Bilirubin 0.4 mg/dL (0.2-1.0) Aspartate Amino Transf (AST/SGOT) 21 U/L (15-37) Alanine Aminotransferase (ALT/SGPT) 26 U/L (14-59) Alkaline Phosphatase 104 U/L (46-116) Troponin I Quantitative < 0.017 ng/mL (0.000-0.055) Total Protein 8.6 g/dL (6.4-8.2) Albumin 4.1 g/dL (3.4-5.0) Albumin/Globulin Ratio 0.9 (1.0-1.7) Lipase 116 U/L (73-393) Urine Collection Type Unknown Urine Color Yellow Urine Clarity Clear Urine pH 7.0 Urine Specific Jones >=1.030 Urine Protein Negative mg/dL (NEG-TRACE) Urine Glucose (UA) 100 mg/dL (NEG) Urine Ketones (Stick) 40 mg/dL (NEG) Urine Blood Negative (NEG) Urine Nitrite Negative (NEG) Urine Bilirubin Negative (NEG) Urine Urobilinogen Dipstick 0.2 mg/dL (0.2 mg/dL) Urine Leukocyte Esterase Negative (NEG) Urine RBC 0 /HPF (0-2) Urine WBC 0 /HPF (0-4) Urine Squamous Epithelial Cells Mod /LPF Urine Bacteria 0 /HPF (0-FEW) Urine Hyaline Casts Occasional /HPF Urine Opiates Screen Pos (NEG) Urine Methadone Screen Neg (NEG) Urine Barbiturates Neg (NEG) Urine Phencyclidine Screen Neg (NEG) Urine Amphetamine/Methamphetamine Neg (NEG) Urine Benzodiazepines Screen Neg (NEG) Urine Cocaine Screen Neg (NEG) Urine Cannabinoids Screen Pos (NEG) Urine Ethyl Alcohol Neg (NEG) Glucose (Fingerstick) 159 mg/dL (70-99) Brief Hospital Course Ms. Tubbs is a 56 old [sex] who presented with [ Pleasant 56 y.o AA female 1 week onset intermittent abd pain, most tender on Right side, mid to upper areas. CT abd fails to show any acute pathology, all incidentals only i,e ventral hernia none obstructing, diverticulosis, NO fevers , no diarrhea but did have 100 cc greenish emesis at ER during my visit, Better with IV fentanyl got 2 doses and is slightly sleepy, at bedside denies recent sick contacts or travels or any suspicious foods. Labs unimpressive. Admit as pain persist and to have GS see her,. HAs had prior cholecystectomy, APpendix still intact and lacks inflammatory findings COURSE, Better overnight with IVF, nausea meds and pain meds, GS saw, no acute abd. Feels better TOlerated PO diet, Ready for home., Zofran ODT prn RXd. Tam RN and pt and OBS admit Discharge Information Condition at Discharge: Improved, Stable Disposition/Orders: D/C to Home Scheduled Cyclobenzaprine Hcl (Cyclobenzaprine Hcl), 5 MG PO BID, (Reported) Liraglutide (Victoza 2-Jewel), 0.6 MG SQ DAILY, (Reported) Metformin Hcl (Metformin Hcl), 1,000 MG PO BID, (Reported) Metoprolol Tartrate (Metoprolol Tartrate), 50 MG PO BID, (Reported) Omeprazole (Omeprazole), 40 MG PO DAILY, (Reported) Pravastatin Sodium (Pravastatin Sodium), 40 MG PO DAILY, (Reported) Scheduled PRN Hydrocodone Bit/Acetaminophen (Hydrocodone-Apap 5-325 ), 1 TAB PO PRN Q4HRS PRN for PAIN, (Reported) Tramadol Hcl (Tramadol Hcl), 50 MG PO Q4H PRN for PAIN, (Reported) MEGHAN LEO MD Jan 12, 2017 10:48
[2017-01-12 11:10] VITALS: BP 153/74
--- NOTE | 2017-01-12 17:42 | PDOC2 ---
CONSULT Date of Consult Date of Consult DATE: 01/12/17 TIME: 17:38 Reason for Consult Reason for Consult: abd pain Referring Physician Referring Physician: Fabian Identification/Chief Complaint Chief Complaint abd pain Problems: Source Source: Patient (and pt's ), Unable to obtain due to History of Present Illness Reason for Visit: 56 yo F with c/o N/V, abd pain. Intermittent loose and normal stools. Denies previous episodes. Reports feeling better since admission. Past Medical History Cardiovascular: HTN Endocrine: Diabetes Past Surgical History Past Surgical History: Cholecystectomy, No pertinent history Family History Family History: High Cholestrol, Hypertension Social History No ALCOHOL: none Drugs: None Current Problem List Problem List Problems Medical Problems: (1) Abdominal pain Status: Acute Current Medications Current Medications Current Medications Fentanyl Citrate (Fentanyl 2ml Vial) 50 mcg PRN Q15MIN PRN IV PAIN GREATER THAN 3/10 Last administered on 01/11/17 19:19; Start 01/11/17 at 17:30; Stop at 20:53; Status DC Sodium Chloride 1,000 ml @ 1,000 mls/hr Q1H IV Last administered on 01/11/17 17:36; Start 01/11/17 at 17:25; Stop 01/11/17 at 18:24; Status DC Ondansetron HCl (Zofran) 4 mg 1X ONCE IV Last administered on 01/11/17 17:36 ; Start 01/11/17 at 17:30; Stop 01/11/17 at 17:31; Status DC Iohexol (Omnipaque 300 Mg/ml) 60 ml 1X ONCE IV Last administered on 01/11/17 18:12; Start 01/11/17 at 18:15; Stop 01/11/17 at 18:16; Status DC Info (Do NOT chart on this entry -- for MONITORING) 1 each PRN DAILY PRN MC SEE COMMENTS; Start 01/11/17 at 18:15; Stop 01/12/17 at 14:31; Status DC Ondansetron HCl (Zofran) 4 mg 1X ONCE IV Last administered on 01/11/17 20:20 ; Start 01/11/17 at 20:15; Stop 01/11/17 at 20:19; Status DC Sodium Chloride 1,000 ml @ 125 mls/hr 1X ONCE IV Last administered on 20:22; Start 01/11/17 at 20:15; Stop 01/12/17 at 04:14; Status DC Fentanyl Citrate (Fentanyl 2ml Vial) 50 mcg PRN Q2HR PRN IV PAIN GREATER THAN 3 /10 Last administered on 01/12/17 06:35; Start 01/11/17 at 21:00; Stop at 14:31; Status DC Ondansetron HCl (Zofran) 4 mg 1X ONCE IV ; Start 01/11/17 at 21:00; Stop at 21:01; Status DC Ondansetron HCl (Zofran Odt) 4 mg PRN Q6HRS PRN PO NAUSEA/VOMITING; Start 01/11 at 21:00; Stop 01/12/17 at 14:31; Status DC Sodium Chloride 1,000 ml @ 100 mls/hr Q10H IV ; Start 01/11/17 at 21:00; Stop 01/12/17 at 14:31; Status DC Famotidine (Pepcid) 20 mg QHS IVP ; Start 01/11/17 at 21:00; Stop 01/12/17 at 14 :31; Status DC Labetalol HCl (Normodyne) 10 mg PRN Q2HR PRN IVP HYPERTENSION, SEE COMMENTS Last administered on 01/11/17 22:05; Start 01/11/17 at 21:00; Stop 01/12/17 at 14:31; Status DC Acetaminophen/ Hydrocodone Bitart (Lortab 5/325) 1 tab PRN Q4HRS PRN PO PAIN Last administered on 01/11/17 22:56; Start 01/11/17 at 21:00; Stop 01/12/17 at 14:31; Status DC Metformin HCl (Glucophage) 1,000 mg BIDWMEALS PO ; Start 01/13/17 at 08:00; Stop 01/13/17 at 08:00; Status DC Metoprolol Tartrate (Lopressor) 50 mg BID PO Last administered on 01/12/17 09: 48; Start 01/11/17 at 21:15; Stop 01/12/17 at 14:31; Status DC Tramadol HCl (Ultram) 50 mg PRN Q4HRS PRN PO PAIN; Start 01/11/17 at 21:00; Stop 01/12/17 at 14:31; Status DC Cyclobenzaprine HCl (Flexeril) 5 mg BID PO Last administered on 01/12/17 09:48 ; Start 01/11/17 at 21:30; Stop 01/12/17 at 14:31; Status DC Non-Formulary Medication 0.6 mg DAILY SQ ; Start 01/12/17 at 09:00; Stop at 14:31; Status DC Pantoprazole Sodium (Protonix) 40 mg DAILYAC PO Last administered on 01/12/17 09:47; Start 01/12/17 at 07:30; Stop 01/12/17 at 14:31; Status DC Atorvastatin Calcium (Lipitor) 10 mg HS PO Last administered on 01/12/17 09:47 ; Start 01/12/17 at 09:00; Stop 01/12/17 at 14:31; Status DC Insulin Aspart (NovoLOG) 0-7 UNITS TIDWMEALS SQ Last administered on 01/12/17 09:49; Start 01/12/17 at 08:00; Stop 01/12/17 at 14:31; Status DC Dextrose (Dextrose 50%-Water Syringe) 12.5 gm PRN Q15MIN PRN IV SEE COMMENTS; Start 01/11/17 at 21:00; Stop 01/12/17 at 14:31; Status DC Ondansetron HCl (Zofran) 4 mg PRN Q8HRS PRN IV NAUSEA/VOMITING Last administered on 01/12/17 00:40; Start 01/11/17 at 21:45; Stop 01/12/17 at 14:31 ; Status DC Fentanyl Citrate (Fentanyl 2ml Vial) 50 mcg PRN Q1HR PRN IV PAIN Last administered on 01/12/17 02:50; Start 01/11/17 at 21:45; Stop 01/12/17 at 14:31 ; Status DC Sodium Chloride 1,000 ml @ 125 mls/hr Q8H IV ; Start 01/11/17 at 22:00; Stop at 14:31; Status DC Acetaminophen (Tylenol) 650 mg PRN Q4HRS PRN PO FEVER; Start 01/11/17 at 21:45 ; Stop 01/12/17 at 14:31; Status DC Active Scripts Active Zofran Odt (Ondansetron) 4 Mg Tab.rapdis 1 Tab SL Q8HRS Reported Victoza 2-Jewel (Liraglutide) 0.6 Mg/0.1 Ml Pen.injctr 0.6 Mg SQ DAILY Omeprazole 40 Mg Capsule.dr 40 Mg PO DAILY Cyclobenzaprine Hcl 5 Mg Tablet 5 Mg PO BID Metoprolol Tartrate 50 Mg Tablet 50 Mg PO BID Tramadol Hcl 50 Mg Tablet 50 Mg PO Q4H PRN Hydrocodone-Apap 5-325 (Hydrocodone Bit/Acetaminophen) 1 Each Tablet 1 Tab PO PRN Q4HRS PRN Pravastatin Sodium 40 Mg Tablet 40 Mg PO DAILY Metformin Hcl 1,000 Mg Tablet 1,000 Mg PO BID Allergies Allergies: Coded Allergies: No Known Drug Allergies (Unverified , 10/06/13) ROS Gastrointestinal: Yes Nausea, Yes Vomiting, Yes Abdominal Pain Physical Exam General: Alert, Oriented X3, Cooperative, No acute distress, Other (obese) HEENT: Atraumatic, EOMI Lungs: Normal air movement Abdomen: Soft, No tenderness Extremities: No clubbing, No edema Skin: No rashes, No breakdown Neuro: Normal speech, Sensation intact Psych/Mental Status: Mental status NL, Mood NL Vitals VITALS Vital Signs Date Time Temp Pulse Resp B/P (MAP) Pulse Ox O2 Delivery O2 Flow Rate FiO2 01/12/17 11:10 97.5 18 153/74 (100) 96 Room Air 97.5 01/12/17 09:48 97 Labs Labs Laboratory Tests Test 01/11/17 17:02 01/11/17 18:52 01/12/17 07:37 01/12/17 08:20 White Blood Count 6.5 x10^3/uL (4.0-11.0) 8.4 x10^3/uL (4.0-11.0) Red Blood Count 5.15 x10^6/uL (3.50-5.40) 4.64 x10^6/uL (3.50-5.40) Hemoglobin 13.5 g/dL (12.0-15.5) 11.9 g/dL (12.0-15.5) Hematocrit 41.2 % (36.0-47.0) 36.7 % (36.0-47.0) Mean Corpuscular Volume 80 fL (79-100) 79 fL (79-100) Mean Corpuscular Hemoglobin 26 pg (25-35) 26 pg (25-35) Mean Corpuscular Hemoglobin Concent 33 g/dL (31-37) 33 g/dL (31-37) Red Cell Distribution Width 14.0 % (11.5-14.5) 13.9 % (11.5-14.5) Platelet Count 314 x10^3/uL (140-400) 258 x10^3/uL (140-400) Neutrophils (%) (Auto) 82 % (31-73) 76 % (31-73) Lymphocytes (%) (Auto) 15 % (24-48) 16 % (24-48) Monocytes (%) (Auto) 2 % (0-9) 8 % (0-9) Eosinophils (%) (Auto) 0 % (0-3) 0 % (0-3) Basophils (%) (Auto) 1 % (0-3) 1 % (0-3) Neutrophils # (Auto) 5.3 x10^3uL (1.8-7.7) 6.4 x10^3uL (1.8-7.7) Lymphocytes # (Auto) 1.0 x10^3/uL (1.0-4.8) 1.3 x10^3/uL (1.0-4.8) Monocytes # (Auto) 0.1 x10^3/uL (0.0-1.1) 0.7 x10^3/uL (0.0-1.1) Eosinophils # (Auto) 0.0 x10^3/uL (0.0-0.7) 0.0 x10^3/uL (0.0-0.7) Basophils # (Auto) 0.1 x10^3/uL (0.0-0.2) 0.0 x10^3/uL (0.0-0.2) Sodium Level 141 mmol/L (136-145) 139 mmol/L (136-145) Potassium Level 3.8 mmol/L (3.5-5.1) 3.1 mmol/L (3.5-5.1) Chloride Level 101 mmol/L (98-107) 103 mmol/L (98-107) Carbon Dioxide Level 26 mmol/L (21-32) 24 mmol/L (21-32) Anion Gap 14 (6-14) 12 (6-14) Blood Urea Nitrogen 22 mg/dL (7-20) 16 mg/dL (7-20) Creatinine 1.2 mg/dL (0.6-1.0) 1.0 mg/dL (0.6-1.0) Estimated GFR (Cockcroft-Gault) 55.8 68.9 BUN/Creatinine Ratio 18 (6-20) Glucose Level 186 mg/dL (70-99) 162 mg/dL (70-99) Lactic Acid Level 3.0 mmol/L (0.4-2.0) Calcium Level 9.7 mg/dL (8.5-10.1) 8.5 mg/dL (8.5-10.1) Total Bilirubin 0.4 mg/dL (0.2-1.0) Aspartate Amino Transf (AST/SGOT) 21 U/L (15-37) Alanine Aminotransferase (ALT/SGPT) 26 U/L (14-59) Alkaline Phosphatase 104 U/L (46-116) Troponin I Quantitative < 0.017 ng/mL (0.000-0.055) Total Protein 8.6 g/dL (6.4-8.2) Albumin 4.1 g/dL (3.4-5.0) Albumin/Globulin Ratio 0.9 (1.0-1.7) Lipase 116 U/L (73-393) Urine Collection Type Unknown Urine Color Yellow Urine Clarity Clear Urine pH 7.0 Urine Specific Dania >=1.030 Urine Protein Negative mg/dL (NEG-TRACE) Urine Glucose (UA) 100 mg/dL (NEG) Urine Ketones (Stick) 40 mg/dL (NEG) Urine Blood Negative (NEG) Urine Nitrite Negative (NEG) Urine Bilirubin Negative (NEG) Urine Urobilinogen Dipstick 0.2 mg/dL (0.2 mg/dL) Urine Leukocyte Esterase Negative (NEG) Urine RBC 0 /HPF (0-2) Urine WBC 0 /HPF (0-4) Urine Squamous Epithelial Cells Mod /LPF Urine Bacteria 0 /HPF (0-FEW) Urine Hyaline Casts Occasional /HPF Urine Opiates Screen Pos (NEG) Urine Methadone Screen Neg (NEG) Urine Barbiturates Neg (NEG) Urine Phencyclidine Screen Neg (NEG) Urine Amphetamine/Methamphetamine Neg (NEG) Urine Benzodiazepines Screen Neg (NEG) Urine Cocaine Screen Neg (NEG) Urine Cannabinoids Screen Pos (NEG) Urine Ethyl Alcohol Neg (NEG) Glucose (Fingerstick) 159 mg/dL (70-99) Test 01/12/17 12:05 Glucose (Fingerstick) 159 mg/dL (70-99) Laboratory Tests Test 01/11/17 18:52 01/12/17 07:37 01/12/17 08:20 01/12/17 12:05 Urine Collection Type Unknown Urine Color Yellow Urine Clarity Clear Urine pH 7.0 Urine Specific Dania >=1.030 Urine Protein Negative mg/dL (NEG-TRACE) Urine Glucose (UA) 100 mg/dL (NEG) Urine Ketones (Stick) 40 mg/dL (NEG) Urine Blood Negative (NEG) Urine Nitrite Negative (NEG) Urine Bilirubin Negative (NEG) Urine Urobilinogen Dipstick 0.2 mg/dL (0.2 mg/dL) Urine Leukocyte Esterase Negative (NEG) Urine RBC 0 /HPF (0-2) Urine WBC 0 /HPF (0-4) Urine Squamous Epithelial Cells Mod /LPF Urine Bacteria 0 /HPF (0-FEW) Urine Hyaline Casts Occasional /HPF Urine Opiates Screen Pos (NEG) Urine Methadone Screen Neg (NEG) Urine Barbiturates Neg (NEG) Urine Phencyclidine Screen Neg (NEG) Urine Amphetamine/Methamphetamine Neg (NEG) Urine Benzodiazepines Screen Neg (NEG) Urine Cocaine Screen Neg (NEG) Urine Cannabinoids Screen Pos (NEG) Urine Ethyl Alcohol Neg (NEG) Glucose (Fingerstick) 159 mg/dL (70-99) 159 mg/dL (70-99) White Blood Count 8.4 x10^3/uL (4.0-11.0) Red Blood Count 4.64 x10^6/uL (3.50-5.40) Hemoglobin 11.9 g/dL (12.0-15.5) Hematocrit 36.7 % (36.0-47.0) Mean Corpuscular Volume 79 fL (79-100) Mean Corpuscular Hemoglobin 26 pg (25-35) Mean Corpuscular Hemoglobin Concent 33 g/dL (31-37) Red Cell Distribution Width 13.9 % (11.5-14.5) Platelet Count 258 x10^3/uL (140-400) Neutrophils (%) (Auto) 76 % (31-73) Lymphocytes (%) (Auto) 16 % (24-48) Monocytes (%) (Auto) 8 % (0-9) Eosinophils (%) (Auto) 0 % (0-3) Basophils (%) (Auto) 1 % (0-3) Neutrophils # (Auto) 6.4 x10^3uL (1.8-7.7) Lymphocytes # (Auto) 1.3 x10^3/uL (1.0-4.8) Monocytes # (Auto) 0.7 x10^3/uL (0.0-1.1) Eosinophils # (Auto) 0.0 x10^3/uL (0.0-0.7) Basophils # (Auto) 0.0 x10^3/uL (0.0-0.2) Sodium Level 139 mmol/L (136-145) Potassium Level 3.1 mmol/L (3.5-5.1) Chloride Level 103 mmol/L (98-107) Carbon Dioxide Level 24 mmol/L (21-32) Anion Gap 12 (6-14) Blood Urea Nitrogen 16 mg/dL (7-20) Creatinine 1.0 mg/dL (0.6-1.0) Estimated GFR (Cockcroft-Gault) 68.9 Glucose Level 162 mg/dL (70-99) Calcium Level 8.5 mg/dL (8.5-10.1) Images Images Ct demonstrates hernias, but not obstructing, unable to palpate secondary to habitus Assessment/Plan Assessment/Plan abd pain, favor gastroenteritis appears to be improving and should be self limiting OK to work towards d/c, f/u PRN Thanks for consult! RONALD KING MD Jan 12, 2017 17:41
== END 2017-01-12 14:31 | disposition home or self-care (01) ==
LOC: ER 16:44 → 2 NORTH 21:22
PROVIDERS: ADMIT Internal Medicine; ATTEND Internal Medicine
DX: K57.90 Diverticulosis of intestine, part unspecified, without perforation or abscess without bleeding (principal); I10 Essential (primary) hypertension; E11.9 Type 2 diabetes mellitus without complications; K21.9 Gastro-esophageal reflux disease without esophagitis; Z98.890 Other specified postprocedural states; Z90.710 Acquired absence of both cervix and uterus; I25.2 Old myocardial infarction; I25.10 Atherosclerotic heart disease of native coronary artery without angina pectoris
CPT/HCPCS: 36415; 74177; 80048; 80053; 80307; 81001; 82962; 83605; 83690; 84484; 85025; 93005; 96361; 96372; 96374; 96375; 96376; 99285; G0378; G0379; J1815; J2405; J3010; J3490; J7030; Q9967; G0479

== ENCOUNTER → 2017-05-17 | Outpatient (CLI) | payer OTHER | END | disposition home or self-care (01) | LOC: NM 08:24 | DX: K30 Functional dyspepsia (principal) | CPT/HCPCS: 78264; A9541 ==